=== PATIENT | male | born 1990 | race Caucasian/White ===

== ENCOUNTER 2018-11-09 10:38 | Emergency (ER) | payer BC ==
[2018-11-09 10:44] VITALS: BP 135/90; PULSE 79; TEMP 98; BMI 28.4
--- NOTE | 2018-11-09 11:41 | PDOC ---
History of Present Illness - General Chief Complaint: Pain Stated Complaint: ABD PAIN Time Seen by Provider: 11/09/18 10:49 History Source: Patient - History of Present Illness Timing/Duration: reports: constant, intermittent Quality: reports: moderate Abdominal Pain Onset Location: reports: [facility] Past History - Past Medical History Allergies/Adverse Reactions: Allergies Allergy/AdvReac Type Severity Reaction Status Date / Time No Known Allergies Allergy Verified 11/09/18 10:40 Home Medications: Ambulatory Orders Escitalopram Oxalate [Lexapro -] 10 mg PO DAILY 12/18/14 COPD: No CHF: No DVT: No - Immunization History Immunization Up to Date: Yes - Suicide/Smoking/Psychosocial Hx Smoking History: Never smoked Have you smoked in the past 12 months: No Hx Alcohol Use: No Drug/Substance Use Hx: No Substance Use Type: None Review of Systems - Review of Systems Constitutional: No: Chills, Fever Respiratory: No: Shortness of Breath Cardiac (ROS): No: Chest Pain ABD/GI: No: Constipated, Diarrhea, Nausea, Vomiting : No: Dysuria, Hematuria *Physical Exam - Vital Signs Last Vital Signs Temp Pulse Resp BP Pulse Ox 98.0 F 79 17 135/90 98 11/09/18 10:40 11/09/18 10:40 11/09/18 10:40 11/09/18 10:40 11/09/18 10:40 - Physical Exam General Appearance: Yes: Appropriately Dressed. No: Apparent Distress HEENT: positive: Normal Voice Neck: positive: Supple Respiratory/Chest: positive: Lungs Clear, Normal Breath Sounds. negative: Respiratory Distress Cardiovascular: positive: Regular Rate, S1, S2 Gastrointestinal/Abdominal: positive: Tender (sig ttp to L mid abd w/ palpation) Musculoskeletal: negative: CVA Tenderness Integumentary: positive: Warm, Clammy Neurologic: positive: Fully Oriented, Alert, Normal Mood/Affect Moderate Sedation - Procedure Monitoring Vital Signs: Procedure Monitoring Vital Signs Temperature 98.0 F 11/09/18 10:40 Pulse Rate 79 11/09/18 10:40 Respiratory Rate 17 11/09/18 10:40 Blood Pressure 135/90 11/09/18 10:40 O2 Sat by Pulse Oximetry (%) 98 11/09/18 10:40 Medical Decision Making - Medical Decision Making 11/09/18 10:59 28-year-old male, no significant history, here with abdominal pain. Patient states since yesterday, he has had intermittent L upper abdominal pain that appears to worsen with palpation, deep inspiration and with stretching. No trauma, but reports that after not working out in gym for the past 3 weeks, he resumed lifting weights 2 days ago. pain started shortly after that. Patient denies any change in bowel movements, nausea, vomiting, fever or chills See exam L upper abd pain Suspect muscular source given hx but will get US given sig ttp as d/w ED attg who also evaluated pt 11/09/18 14:40 US read as fatty liver, otherwise read as unremarkable. Patient informed of report. Will dc to take [id number] pain meds as needed and to to ED if symptoms worsen *DC/Admit/Observation/Transfer Diagnosis at time of Disposition: Abdominal pain Qualifiers: Abdominal location: left upper quadrant Qualified Code(s): R10.12 - Left upper quadrant pain - Discharge Dispostion Disposition: HOME Condition at time of disposition: Good - Referrals - Patient Instructions Printed Discharge Instructions: Acute Abdominal Pain Additional Instructions: The cause of your abdominal pain is unclear at this time, but could possibly be muscular. Your ultrasound did not reveal an obvious source of your pain. Take Tylenol or Motrin as needed for pain and if symptoms persist and/or worsen , please return to the ED as discussed - Post Discharge Activity
== END 2018-11-09 14:00 | disposition home or self-care (01) ==
LOC: JER 10:38
DX: R10.12 Left upper quadrant pain (principal)
CPT/HCPCS: 76700-TC; 99281-25